=== PATIENT | female | born 1970 | race Caucasian/White ===

== ENCOUNTER 2018-10-31 02:04 | Emergency (ER) | payer BC, OTHER ==
--- NOTE | 2018-10-31 02:27 | ED ---
Complex/Multi-Sys Presentation - HPI Summary HPI Summary: The pt is a 48 year old female who is presenting to the [facility] with a chief complaint of low back pain. The mechanism of the initial injury was stated to have occurred yesterday morning (10/30/18) as the patient was giving her horses water. She states that she had felt pain in the right flank and lower back area. The pain is constant and began to worsen later in the day. Symptoms were not alleviated with ice and heat application or with Tylenol or Ibuprofen. She attempted to go to the bathroom later at night where she states she had an episode of syncope and had fallen in the bathroom. The patient's had found her, but she is unsure of any other injury from the fall. Later after that incident, the patient had another syncopal episode and reports of nausea. The pain radiates to her legs and she denies any urinary symptoms. No other past medical history regarding her back is noted. She denies numbness in her legs as well. Pain medication has relieved some but not all of her pain. No other medications are reported. Symptoms are aggravated with movement. The pain is rated to be 8/10. - History Of Current Complaint Chief Complaint: EDBackInjuryPain Time Seen by Provider: 10/31/18 02:09 Hx Obtained From: Patient Onset/Duration: Lasting Days - Yesterday Morning Timing: Constant Severity Currently: Severe Severity Initially: Severe Location: Pain At: - Right Lower back and right flank, Radiates To: - Legs Aggravating Factor(s): Movement Alleviating Factor(s): Pain Medication Associated Signs And Symptoms: Positive: Syncope - 2x, Nausea, Back Pain - right sided, Other - Right flank pain. Negative Urinary symptoms, and numbness. - Allergies/Home Medications Allergies/Adverse Reactions: Allergies Allergy/AdvReac Type Severity Reaction Status Date / Time Sulfa (Sulfonamide Allergy Swelling Verified 10/31/18 02:13 Antibiotics) Of Face,Lips,& Throat PMH/Surg Hx/FS Hx/Imm Hx Sensory History: Denies: Hx Legally Blind Opthamlomology History: Denies: Hx Legally Blind EENT History: Denies: Hx Deafness Psychiatric History: Reports: Hx Depression Infectious Disease History: No Infectious Disease History: Denies: Traveled Outside the [place] in Last 30 Days - Family History Family History: Reviewed and Noncontributory - Social History Lives: With Family Alcohol Use: Occasionally Substance Use Type: Reports: None Smoking Status (MU): Never Smoked Tobacco Review of Systems Constitutional: Negative Eyes: Negative ENT: Negative Cardiovascular: Negative Respiratory: Negative Positive: Nausea Positive: no symptoms reported Musculoskeletal: Other - Lower back pain (right side), right flank pain that radiates into her legs Skin: Negative Positive: Syncope - 2x. Negative: Numbness Psychological: Normal All Other Systems Reviewed And Are Negative: Yes Physical Exam - Summary Physical Exam Summary: VITAL SIGNS: Reviewed. GENERAL: Patient is a well-developed and nourished (FEMALE) who is lying comfortable in the stretcher. Patient is not in any acute respiratory distress. HEAD AND FACE: No signs of trauma. No ecchymosis, hematomas or skull depressions. No sinus tenderness. EYES: PERRLA, EOMI x 2, No injected conjunctiva, no nystagmus. EARS: Hearing grossly intact. Ear canals and tympanic membranes are within normal limits. MOUTH: Oropharynx within normal limits. NECK: Supple, trachea is midline, no adenopathy, no JVD, no carotid bruit, no c- spine tenderness, neck with full ROM. CHEST: Symmetric, no tenderness at palpation LUNGS: Clear to auscultation bilaterally. No wheezing or crackles. CVS: Regular rate and rhythm, S1 and S2 present, no murmurs or gallops appreciated. ABDOMEN: Soft, non-tender. No signs of distention. No rebound no guarding, and no masses palpated. Bowel sounds are normal. EXTREMITIES: FROM in all major joints, no edema, no cyanosis or clubbing. NEURO: Alert and oriented x 3. No acute neurological deficits. Speech is normal and follows commands. Left straight leg test 20 degrees; Right straight leg test at 0 degrees; Neuro exam is intact BACK: Tender right lower back SKIN: Dry and warm Triage Information Reviewed: Yes Vital Signs On Initial Exam: Initial Vitals Temp Pulse Resp BP Pulse Ox 97.9 F 66 18 114/71 97 10/31/18 02:05 10/31/18 02:05 10/31/18 02:05 10/31/18 02:05 10/31/18 02:05 Vital Signs Reviewed: Yes Diagnostics - Vital Signs Vital Signs Temp Pulse Resp BP Pulse Ox 10/31/18 02:05 97.9 F 66 18 114/71 97 - Laboratory Result Diagrams: 10/31/18 02:37 10/31/18 02:37 Lab Statement: Any lab studies that have been ordered have been reviewed, and results considered in the medical decision making process. - CT CT A/P CT Interpretation Completed By: Radiologist Summary of CT Findings: CT A/P as per radiologist report reveals 1. Multiple prominent ileocecal lymph nodes which may be due to mesenteric. adenitis. 2. Large fecal load. 3. A 2.2 cm left adnexal cyst. The ED Physician has reviewed this radiology report. CT Lumbar Spine CT Interpretation Completed By: Radiologist Summary of CT Findings: Lumbar Spine CT as per radiologist reveals 1. No acute findings. 2. Mild multilevel degenerative spondylosis. Mild central spinal canal stenosis. at L3-L4 and L4-L5. Moderate right neural foraminal narrowing at L4-L5 level. If clinically indicated, further evaluation with MRI of the lumbar spine may be. considered. The ED Physician has reviewed this radiology report. - EKG 0235 EKG Rhythm: Sinus Rhythm - 62 bpm Summary of EKG Findings: EKG at 0235 reveals sinus 62 bpm with normal axis, normal intervals and no ischemic changes. Complex Multi-Symp Course/Dx Course Of Treatment: The pt is a 48 year old female who is presenting to the [facility] with a chief complaint of lower back pain. The pt had no little range of motion with her right straight leg test and 20 degrees range of motion in the left straight leg test. In the [facility], the patient received a CT A/P, EKG and CT Spine Lumber. Later examination revealed Post void residual as 0. Rectal exam did show good rectal tone. Sensation is intact in the saddle area. Patient said that her pain has improved and she only feels pain when she moves. She was able to ambulate in the [facility]. The patient will be discharged home with pain medication and heating treatment. The patient said she had a bowel movement as usual and she does not feel that she is constipated. We discussed the plan with the patient and the patient is agreeable with this plan. The dx will be low back pain and vasovagal syncope. - Diagnoses Provider Diagnoses: Low back pain, Vasovagal syncope Discharge - Sign-Out/Discharge Documenting (check all that apply): Patient Departure - Discharge Home - Discharge Plan Condition: Stable Disposition: HOME Prescriptions: Cyclobenzaprine TAB* [Flexeril 10 MG TAB*] 10 mg PO TID PRN #20 tab PRN Reason: Spasms - Back Ibuprofen TAB* [Motrin TAB* 800 MG] 800 mg PO Q6H PRN #30 tab PRN Reason: Pain oxyCODONE/Acetamin 5/325 MG* [Percocet 5/325 TAB*] 1 tab PO Q6H PRN #14 tab MDD 4 PRN Reason: Pain Patient Education Materials: Syncope (ED), Low Back Strain (ED) Referrals: Jose R Aguila MD [Primary Care Provider] - Additional Instructions: RETURN TO THE EMERGENCY DEPARTMENT FOR CHANGING OR WORSENING SYMPTOMS. FOLLOW UP WITH Primary Care Physician IN 1-2 DAYS. - Attestation Statements Document Initiated by Priscilaibe: Yes Documenting Scribe: Ramone Rahman Provider For Whom Scribe is Documenting (Include Credential): Dr. Silvino Francoisiblovely Attestation: Ramone Mendenhall, priscilaibed for Dr. Calixto Cast on 10/31/18 at 0404. Status of Scribe Document: Ready
[2018-10-31] MEDS ORDERED: Ketorolac INJ* 30 MG/ML 1 ML VIAL IV PUSH ONE (02:29)
[2018-10-31] MEDS ORDERED: NS 0.9% 1000 ML* 1,000 ML IV ONE (02:29)
[2018-10-31] MEDS ORDERED: LORazepam INJ* 2 MG/ML 1 ML VIAL IV PUSH ONE (02:29)
[2018-10-31 02:51] LABS: ABS Basophils 0 10^3/ul (0-0.2); ABS Eosinophils 0.1 10^3/ul (0-0.6); ABS Lymphocytes 0.8 10^3/ul (1.0-4.8); ABS Monocytes 0.5 10^3/ul (0-0.8); ABS Neutrophils 4.4 10^3/ul (1.5-7.7); ABS Nucleated RBC 0 10^3/ul; Eosinophil % 1.9 %; Hematocrit 37 % (35-47); Lymphocyte % 13.5 %; Mean Corpuscular HGB Conc 33 g/dl (31-36); Mean Corpuscular Hemoglobin 30 pg (27-31); Mean Corpuscular Volume 91 fL (80-97); Nucleated Red Blood Cells % 0.1; Platelet Count 252 10^3/ul (150-450); Red Blood Count 3.99 10^6/ul (4.00-5.40); Red Cell Distribution Width 13 % (10.5-15); White Blood Count 5.8 10^3/ul (3.5-10.8)
[2018-10-31 02:58] LABS: INR 1.01 (0.77-1.02)
[2018-10-31 03:06] LABS: ALT 26 U/L (7-52); AST 11 U/L (13-39); Albumin 3.8 g/dL (3.2-5.2); Albumin/Globulin Ratio 1.2 (1-3); Alkaline Phosphatase 64 U/L (34-104); Anion Gap 3 mmol/L (2-11); BUN/Creatinine Ratio 18.3 (8-20); Blood Urea Nitrogen 15 mg/dL (6-24); C Reactive Protein 8.03 mg/L (<8.01); CO2 Carbon Dioxide 30 mmol/L (22-32); Chloride 106 mmol/L (101-111); EGFR Non-African American 75.1 (>60); Globulin 3.2 g/dL (2-4); Glucose 112 mg/dL (70-100); Potassium 4.2 mmol/L (3.5-5.0); Sodium 139 mmol/L (135-145)
[2018-10-31 03:13] LABS: HCG Pregnancy < 0.60 mIU/mL
[2018-10-31 03:36] LABS: Urine Appearance Clear; Urine Color Yellow
[2018-10-31 03:39] LABS: Urine Blood Negative (Negative); Urine Ketones Negative (Negative); Urine Nitrite Negative (Negative); Urine Protein 1+(30 mg/dL) (Negative); Urine Specific Gravity 1.035 (1.010-1.030); Urine Urobilinogen Negative (Negative)
[2018-10-31 03:40] LABS: Urine Bilirubin Negative (Negative); Urine Glucose Negative (Negative)
[2018-10-31 04:07] LABS: Urine Bacteria 1+ (Absent); Urine Red Blood Cell Trace(0-2/hpf) (Absent); Urine White Blood Cell Trace(0-5/hpf) (Absent)
[2018-10-31 04:46] VITALS: BP 107/74
== END 2018-10-31 04:45 | disposition home or self-care (01) ==
LOC: ED 02:04
DX: R55 Syncope and collapse (principal); M54.9 Dorsalgia, unspecified; R10.84 Generalized abdominal pain
CPT/HCPCS: 36415; 72131; 74176; 80053; 81003; 81015; 83735; 84702; 85025; 85610; 85730; 86140; 87086; 93005; 96374; 96375; 99283; J1885; J2060